=== PATIENT | male | born 1955 | race African-American/Black ===

== ENCOUNTER 2018-05-27 08:59 | Emergency (ER) | payer OTHER ==
[~2018-05-27] VITALS: Ht 180.3 cm; Wt 113.4 kg
--- NOTE | 2018-05-27 09:17 | Emergency Room Report ---
History of Present Illness General Chief Complaint: Skin Rash/Abscess Source: Patient Present Illness HPI Patient presents with blisters formed on his feet. The Left is getting bigger. These started from increased walking. No fevers. The R drained with his pushing on it. No calf pain. Pain rated at 0/10 to RN. He has chronic fungal infection of feet. Has been using pumice stone. 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 Alleges stable disease with neg viral load and good CD4 counts. No dyspnea, NVD, cough. No calf pain or swelling. Hammer toes. Allergies: Coded Allergies: No Known Allergies (Unverified , 05/27/18) Patient History Past Medical History: see triage record Social History: Denies: smoking Social History Narrative at home Reviewed Nursing Documentation: PMH: Agreed; PSxH: Agreed Nursing Documentation-PMH Past Medical History: No History, Except For Review of Systems All Other Systems: negative except mentioned in HPI Physical Exam Vital Signs Date Time Temp Pulse Resp B/P (MAP) Pulse Ox O2 Delivery O2 Flow Rate FiO2 05/27/18 09:01 98.1 84 16 137/83 94 Room Air 98.1 Sp02 EP Interpretation: reviewed, normal General Appearance: well appearing, no apparent distress Head: normocephalic, atraumatic Eyes: bilateral eye normal inspection, bilateral eye PERRL ENT: hearing grossly normal, normal voice, moist mucus membranes Neck: full range of motion, supple Respiratory: no respiratory distress, speaking full sentences Cardiovascular #1: regular rate, rhythm, no edema Cardiovascular #2: 2+ radial (R), 2+ dorsalis pedis (R), 2+ dorsalis pedis (L) Gastrointestinal: normal inspection, overweight Musculoskeletal: no calf tenderness, other - hammer toe deform bilat Neurologic: alert, motor strength/tone normal, grossly normal Psychiatric: mood/affect normal Skin: other - blisters bilat balls of feet, R = 2 cm, L = 4 cm Procedures Incision and Drainage Incision and Drainage : Consent: Verbal Site: bilat feet Blade Size: 11 I & D Procedure: sterile drapes applied, sterile dressing applied Wound Location: other - feet Wound's Depth, Shape: superficial Wound Explored: drained blister fluid Splint Applied?: No Patient Tolerated: Well Complications: None Progress after betadene prep, incised blisters and drained. Cut window in both blisters. Applied bacitracin bilat. Tolerated well. Medical Decision Making Diagnostic Impression: Primary Impression: Infected blisters of multiple sites ER Course Patient with large blisters bilat feet. DDX; infected, blisters, cellulitis. Needs drainage. Will keep most of blister for biologic cover at this point, but may need further debridement in future. Will cover with antibiotics, both topical and oral. Blisters drained. Tolerated well. Dressed by me. Told of need for further treatment. Patient stable for outpatient observation and treatment. Last Vital Signs Date Time Temp Pulse Resp B/P (MAP) Pulse Ox O2 Delivery O2 Flow Rate FiO2 05/27/18 10:01 98.1 16 137/83 94 Room Air 98.1 05/27/18 09:01 84 Status: improved Disposition: HOME, SELF-CARE Condition: Improved Scripts Bacitracin (Bacitracin) 28.4 Gm Oint...g. 1 APPLIC TOPIC BID, #20 GM Prov: Neal York M.D. 05/27/18 Trimethoprim/Sulfamethoxazole 160/800* (BACTRIM DS TABLET*) 1 Each Tablet 1 TAB ORAL Q12H, #14 TAB 0 Refills Prov: Neal York M.D. 05/27/18 Neal York M.D. May 27, 2018 09:17
[2018-05-27] MEDS ORDERED: Bactrim-DS 1 tab ORAL ONE (09:30)
[2018-05-27] MEDS ORDERED: Bacitracin Oint UD TOPIC ONE (09:30)
[2018-05-27] MEDS ORDERED: BACTRIM DS TAB1 EAC1 ORAL (09:48)
[2018-05-27] MEDS ORDERED: BACITRACIN15 GM TOPIC (09:48)
[2018-05-27] MEDS ORDERED: ACETAMINOPHEN-1 EAC1 ORAL (09:54)
[2018-05-27] MEDS ORDERED: [UNRECOGNIZED DRUG - OTHER] (09:54)
[2018-05-27] MEDS ORDERED: ADVIL200 M2 ORAL (09:54)
[2018-05-27] MEDS ORDERED: ANTACID168 MG PO (09:55)
== END 2018-05-27 10:01 | disposition home or self-care (01) ==
LOC: MERGE 09:16 → EMR 09:16
DX: S90.822A Blister (nonthermal), left foot, initial encounter (principal); S90.821A Blister (nonthermal), right foot, initial encounter; L08.9 Local infection of the skin and subcutaneous tissue, unspecified; X58.XXXA Exposure to other specified factors, initial encounter; Y92.9 Unspecified place or not applicable
CPT/HCPCS: 10060; 87070; 87205; 99284